=== PATIENT | male | born 1995 | race Caucasian/White ===

== ENCOUNTER 2017-05-18 07:30 | Inpatient (IN) | payer MEDICAID ==
[~2017-05-18] VITALS: Ht 170.2 cm; Wt 56.0 kg
[2017-05-18 08:48] LABS: BASOPHIL % 0.4 % (0-2); PLATELET COUNT 216 x10^3mcL (130-400)
[2017-05-18 08:55] LABS: CALCIUM 8.6 mg/dL (8.5-10.1); CARBON DIOXIDE 28.8 mmol/L (21-32); CHLORIDE SERUM 102 mmol/L (98-107); CREATININE SERUM 1.1 mg/dL (0.7-1.3); GFR1 > 60 mL/min; GLUCOSE SERUM 90 mg/dL (74-106); SODIUM SERUM 141 mmol/L (136-145)
[2017-05-18 08:55] LABS: UA SPECIFIC GRAVITY >=1.030 (1.005-1.035); microscopic required? YES; urine erythrocyte TRACE (NEGATIVE)
[2017-05-18 08:59] LABS: ALKALINE PHOSPHATASE 80 U/L (46-116); ALT/SGPT 14 U/L (16-63); AST/SGOT 15 U/L (15-37); BILIRUBIN TOTAL 0.62 mg/dL (0.20-1.00)
[2017-05-18 09:11] LABS: AMPHETAMINE QUAL UR NONE DETECTED (NEG <=1000)
[2017-05-18] MEDS ORDERED: HALOPERIDOL10 MG PO (10:56)
[2017-05-18] MEDS ORDERED: OLANZAPINE5 M2 PO (10:57)
[2017-05-18 11:40] VITALS: BP 119/72
[2017-05-18 11:44] LABS: MAGNESIUM 2.1 mg/dL (1.8-2.4); PHOSPHOROUS 4.3 mg/dL (2.5-4.9)
[2017-05-18 11:45] LABS: FREE T4 1.15 ng/dL (0.76-1.46); FREE THYROXINE INDEX 2.9 ug/dL (1.4-4.5); T3 TOTAL 1.1 ng/mL; T4(THYROXINE) 7.9 ug/dL (4.7-13.3)
[2017-05-18 11:46] VITALS: Ht 170.2 cm; Wt 56.0 kg
[2017-05-18 11:47] LABS: CHOLESTEROL/HDL RATIO 5.4
[2017-05-18 13:16] VITALS: BP 109/71
[2017-05-18 17:15] VITALS: BP 92/59
[2017-05-18 21:03] VITALS: BP 91/58
[2017-05-19 05:31] VITALS: BP 112/63
[2017-05-19 08:55] VITALS: BP 110/67
[2017-05-19 12:55] VITALS: BP 109/65
[2017-05-19 18:05] VITALS: BP 101/53
[2017-05-19 20:59] VITALS: BP 101/53
[2017-05-20 05:34] VITALS: BP 106/69
[2017-05-20 06:46] LABS: BASOPHIL % 0.5 % (0-2); PLATELET COUNT 175 x10^3mcL (130-400); RED CELL DISTRIBUTION WIDTH 13.6 % (11.5-14.5)
[2017-05-20 07:00] LABS: CARBON DIOXIDE 24.6 mmol/L (21-32); CHLORIDE SERUM 105 mmol/L (98-107); CREATININE SERUM 0.9 mg/dL (0.7-1.3); GFR1 > 60 mL/min; GLUCOSE SERUM 75 mg/dL (74-106); MAGNESIUM 1.8 mg/dL (1.8-2.4); PHOSPHOROUS 3.2 mg/dL (2.5-4.9); POTASSIUM SERUM 3.5 mmol/L (3.5-5.1); SODIUM SERUM 139 mmol/L (136-145)
[2017-05-20 08:58] VITALS: BP 105/50
[2017-05-20 17:32] VITALS: BP 109/72
[2017-05-20 20:38] VITALS: BP 95/50
[2017-05-21 05:59] VITALS: BP 103/62
[2017-05-21 06:58] LABS: BASOPHIL % 0.6 % (0-2); PLATELET COUNT 178 x10^3mcL (130-400); RED CELL DISTRIBUTION WIDTH 13.9 % (11.5-14.5)
[2017-05-21 07:24] LABS: CALCIUM 8.1 mg/dL (8.5-10.1); CARBON DIOXIDE 25.4 mmol/L (21-32); CHLORIDE SERUM 102 mmol/L (98-107); CREATININE SERUM 0.8 mg/dL (0.7-1.3); GFR1 > 60 mL/min; GLUCOSE SERUM 73 mg/dL (74-106); MAGNESIUM 1.7 mg/dL (1.8-2.4); POTASSIUM SERUM 3.5 mmol/L (3.5-5.1); SODIUM SERUM 136 mmol/L (136-145)
[2017-05-21 08:11] VITALS: BP 105/53
[2017-05-21 17:41] VITALS: BP 101/61
[2017-05-21 21:36] VITALS: BP 100/60
[2017-05-22 04:47] VITALS: BP 109/65
[2017-05-22 08:21] LABS: CALCIUM 7.8 mg/dL (8.5-10.1); CARBON DIOXIDE 26.8 mmol/L (21-32); CHLORIDE SERUM 104 mmol/L (98-107); CREATININE SERUM 0.9 mg/dL (0.7-1.3); GFR1 > 60 mL/min; GLUCOSE SERUM 72 mg/dL (74-106); POTASSIUM SERUM 3.3 mmol/L (3.5-5.1); SODIUM SERUM 138 mmol/L (136-145)
[2017-05-22 10:49] VITALS: BP 111/72
[2017-05-22 12:38] VITALS: BP 112/75
[2017-05-22 17:15] VITALS: BP 111/71
[2017-05-22 22:26] VITALS: BP 101/66
[2017-05-23 05:39] VITALS: BP 93/48
[2017-05-23 06:29] LABS: CALCIUM 8.2 mg/dL (8.5-10.1); CARBON DIOXIDE 25.8 mmol/L (21-32); CHLORIDE SERUM 105 mmol/L (98-107); CREATININE SERUM 0.9 mg/dL (0.7-1.3); GFR1 > 60 mL/min; GLUCOSE SERUM 78 mg/dL (74-106); MAGNESIUM 1.9 mg/dL (1.8-2.4); PHOSPHOROUS 3.8 mg/dL (2.5-4.9); POTASSIUM SERUM 3.6 mmol/L (3.5-5.1); SODIUM SERUM 141 mmol/L (136-145)
[2017-05-23 09:00] VITALS: BP 91/50
[2017-05-23 18:15] VITALS: BP 104/62
[2017-05-23 21:35] VITALS: BP 100/56
[2017-05-24 06:21] VITALS: BP 98/56
[2017-05-24 18:00] VITALS: BP 101/61
[2017-05-24 22:17] VITALS: BP 107/60
[2017-05-25 06:16] LABS: BASOPHIL % 0.4 % (0-2); PLATELET COUNT 171 x10^3mcL (130-400); RED CELL DISTRIBUTION WIDTH 13.9 % (11.5-14.5)
[2017-05-25 06:23] VITALS: BP 101/56
[2017-05-25 06:33] LABS: CALCIUM 8.7 mg/dL (8.5-10.1); CARBON DIOXIDE 25.3 mmol/L (21-32); CHLORIDE SERUM 102 mmol/L (98-107); CREATININE SERUM 0.8 mg/dL (0.7-1.3); GFR1 > 60 mL/min; GLUCOSE SERUM 79 mg/dL (74-106); MAGNESIUM 1.9 mg/dL (1.8-2.4); PHOSPHOROUS 3.8 mg/dL (2.5-4.9); POTASSIUM SERUM 3.5 mmol/L (3.5-5.1); SODIUM SERUM 139 mmol/L (136-145)
[2017-05-25 09:30] VITALS: BP 97/55
[2017-05-25 13:05] VITALS: BP 100/62
[2017-05-25 17:22] VITALS: BP 104/57
[2017-05-25 22:10] VITALS: BP 102/59
[2017-05-26 06:08] VITALS: BP 95/60
[2017-05-26 09:25] VITALS: BP 106/67
[2017-05-26 13:55] VITALS: BP 103/61
[2017-05-26 17:06] VITALS: BP 116/69
[2017-05-26 21:00] VITALS: BP 138/82
[2017-05-27 05:53] VITALS: BP 124/87
[2017-05-27 09:31] VITALS: BP 123/100
[2017-05-27 14:01] VITALS: BP 122/68
[2017-05-27 16:12] VITALS: BP 119/70
[2017-05-27 21:16] VITALS: BP 106/69
[2017-05-28 05:50] VITALS: BP 98/58
[2017-05-28 07:08] LABS: CALCIUM 8.9 mg/dL (8.5-10.1); CARBON DIOXIDE 28.5 mmol/L (21-32); CHLORIDE SERUM 101 mmol/L (98-107); CREATININE SERUM 0.9 mg/dL (0.7-1.3); GFR1 > 60 mL/min; GLUCOSE SERUM 82 mg/dL (74-106); MAGNESIUM 2.1 mg/dL (1.8-2.4); PHOSPHOROUS 4.4 mg/dL (2.5-4.9); POTASSIUM SERUM 3.6 mmol/L (3.5-5.1); SODIUM SERUM 137 mmol/L (136-145)
[2017-05-28 07:51] LABS: BASOPHIL % 0.5 % (0-2); PLATELET COUNT 206 x10^3mcL (130-400); RED CELL DISTRIBUTION WIDTH 14.1 % (11.5-14.5)
[2017-05-28 09:44] VITALS: BP 118/61
[2017-05-28 13:23] VITALS: BP 110/63
[2017-05-28 18:07] VITALS: BP 107/67
[2017-05-28 22:01] VITALS: BP 98/63
[2017-05-29 09:30] VITALS: BP 105/59
[2017-05-29 17:44] VITALS: BP 104/62
[2017-05-29 21:55] VITALS: BP 101/62
[2017-05-30 06:06] VITALS: BP 86/53
[2017-05-30 08:00] VITALS: BP 156/67
[2017-05-30 08:13] VITALS: BP 98/50
[2017-05-30 17:18] VITALS: BP 119/75
[2017-05-30 21:17] VITALS: BP 113/59
[2017-05-31 05:50] VITALS: BP 106/58
[2017-05-31 09:29] VITALS: BP 101/53
[2017-05-31 13:43] VITALS: BP 96/53
[2017-05-31 16:46] VITALS: BP 116/65
[2017-05-31 22:28] VITALS: BP 131/84
[2017-06-01 06:12] LABS: BASOPHIL % 0.5 % (0-2); PLATELET COUNT 219 x10^3mcL (130-400)
[2017-06-01 06:23] VITALS: BP 97/60
[2017-06-01 06:36] LABS: CALCIUM 8.2 mg/dL (8.5-10.1); CARBON DIOXIDE 28.9 mmol/L (21-32); CHLORIDE SERUM 101 mmol/L (98-107); CREATININE SERUM 0.9 mg/dL (0.7-1.3); GFR1 > 60 mL/min; GLUCOSE SERUM 83 mg/dL (74-106); MAGNESIUM 2.2 mg/dL (1.8-2.4); POTASSIUM SERUM 3.6 mmol/L (3.5-5.1); SODIUM SERUM 139 mmol/L (136-145)
[2017-06-01 08:56] VITALS: BP 121/73
[2017-06-01 17:58] VITALS: BP 121/74
[2017-06-01 20:57] VITALS: BP 124/70
[2017-06-02 06:05] VITALS: BP 90/49
[2017-06-02 09:51] VITALS: BP 98/54
[2017-06-02 16:38] VITALS: BP 93/48
[2017-06-02 22:00] VITALS: BP 98/60
[2017-06-03 06:19] VITALS: BP 120/70
[2017-06-03 07:55] VITALS: BP 101/68
[2017-06-03 21:00] VITALS: BP 120/83
[2017-06-04 06:26] VITALS: BP 116/68
[2017-06-04 08:21] LABS: BASOPHIL % 0.5 % (0-2); PLATELET COUNT 231 x10^3mcL (130-400); RED CELL DISTRIBUTION WIDTH 14.1 % (11.5-14.5)
[2017-06-04 08:36] LABS: CALCIUM 8.4 mg/dL (8.5-10.1); CARBON DIOXIDE 29.9 mmol/L (21-32); CHLORIDE SERUM 104 mmol/L (98-107); CREATININE SERUM 0.8 mg/dL (0.7-1.3); GFR1 > 60 mL/min; GLUCOSE SERUM 86 mg/dL (74-106); PHOSPHOROUS 4.9 mg/dL (2.5-4.9); POTASSIUM SERUM 3.6 mmol/L (3.5-5.1); SODIUM SERUM 138 mmol/L (136-145)
[2017-06-04 10:45] VITALS: BP 110/58
[2017-06-04 16:57] VITALS: BP 119/82
[2017-06-04 21:19] VITALS: BP 127/73
[2017-06-05 05:59] VITALS: BP 107/60
[2017-06-05 09:39] VITALS: BP 112/73
[2017-06-05 17:34] VITALS: BP 109/76
[2017-06-05 21:13] VITALS: BP 130/75
[2017-06-06 05:44] VITALS: BP 99/64
[2017-06-06 09:28] VITALS: BP 103/61
[2017-06-06 12:46] VITALS: BP 108/68
[2017-06-06 17:56] VITALS: BP 108/69
[2017-06-06 22:19] VITALS: BP 113/70
[2017-06-07 06:43] VITALS: BP 96/60
[2017-06-07 18:15] VITALS: BP 107/65
[2017-06-07 20:57] VITALS: BP 110/65
[2017-06-08 05:31] VITALS: BP 100/57
[2017-06-08] MEDS ORDERED: OLANZAPINE10 M3 IM (07:27)
[2017-06-08 08:30] VITALS: BP 97/53
[2017-06-08 13:59] VITALS: BP 97/53
[2017-06-08] MEDS ORDERED: SYRINGE1 EA10 MC (16:22)
[2017-06-08] MEDS ORDERED: NEEDLE1 EA10 MC (16:22)
[2017-06-08] MEDS ORDERED: [UNRECOGNIZED DRUG - CODE] IM (16:41)
[2017-06-08 16:42] VITALS: BP 121/78
== END 2017-06-08 18:55 | disposition home or self-care (01) | DRG 469 ==
LOC: ED 07:30 → MU 10:13 → DU 10:13 → MU 05-20 09:46 → DU 05-24 10:33 → MU 05-26 14:01 → DU 05-30 18:44 → MU 05-31 09:01
PROVIDERS: Emergency Medicine; Family Medicine; Family Medicine Sports Medicine; Student in an Organized Health Care Education/Training Program
DX: N17.0 Acute kidney failure with tubular necrosis (principal); G93.41 Metabolic encephalopathy; F15.20 Other stimulant dependence, uncomplicated; E83.39 Other disorders of phosphorus metabolism; E87.6 Hypokalemia; F20.9 Schizophrenia, unspecified; T43.4X6A Underdosing of butyrophenone and thiothixene neuroleptics, initial encounter; T43.596A Underdosing of other antipsychotics and neuroleptics, initial encounter; Z91.128 Patient's intentional underdosing of medication regimen for other reason; Z79.899 Other long term (current) drug therapy; Y92.009 Unspecified place in unspecified non-institutional (private) residence as the place of occurrence of the external cause; Z91.19 Patient's noncompliance with other medical treatment and regimen; E83.51 Hypocalcemia
CPT/HCPCS: 82962; 83880; 84439; 97110-GP; 97116-GP; 97530-GP; G0480; J1200; J1630; J2060; J3475; J3480; J3486; J3490; J7030; Q0092

== ENCOUNTER 2018-09-27 19:07 | Emergency (ER) | payer MEDICAID ==
[~2018-09-27] VITALS: Ht 167.6 cm; Wt 75.7 kg
[~2018-09-27 19:07] MED LIST: HALOPERIDOL10 MG PO; NEEDLE1 EA10 MC; OLANZAPINE10 M3 IM; OLANZAPINE5 M2 PO; SYRINGE1 EA10 MC; [UNRECOGNIZED DRUG - CODE] IM
[2018-09-27 19:24] VITALS: Ht 167.6 cm; Wt 75.7 kg
[2018-09-27 20:21] LABS: BASOPHIL % 0.4 % (0-2); PLATELET COUNT 213 x10^3mcL (130-400); RED CELL DISTRIBUTION WIDTH 13.5 % (11.5-14.5)
[2018-09-27 20:41] LABS: CALCIUM 8.5 mg/dL (8.5-10.1); CARBON DIOXIDE 25.7 mmol/L (21-32); CHLORIDE SERUM 99 mmol/L (98-107); CREATININE SERUM 1.1 mg/dL (0.7-1.3); GFR1 > 60 mL/min; GLUCOSE SERUM 103 mg/dL (74-106); POTASSIUM SERUM 3.1 mmol/L (3.5-5.1); SODIUM SERUM 135 mmol/L (136-145)
[2018-09-27 20:45] LABS: ALBUMIN 3.6 g/dL (3.4-5.0); ALKALINE PHOSPHATASE 79 U/L (46-116); ALT/SGPT 19 U/L (16-63); AST/SGOT 23 U/L (15-37); BILIRUBIN TOTAL 0.57 mg/dL (0.20-1.00); LIPASE 58 IU/L (73-393); TOTAL PROTEIN, SERUM 7.3 g/dL (6.4-8.2)
[2018-09-27 22:50] LABS: UA SPECIFIC GRAVITY <=1.005 (1.005-1.035); microscopic required? YES; urine erythrocyte 2+ (NEGATIVE)
[2018-09-27 23:45] VITALS: BP 107/64
== END 2018-09-27 23:45 | disposition home or self-care (01) ==
LOC: ED 19:07
PROVIDERS: Emergency Medicine
DX: N13.2 Hydronephrosis with renal and ureteral calculous obstruction (principal); E87.6 Hypokalemia; R07.89 Other chest pain
CPT/HCPCS: 36415; 87491; 87591; J1885

== ENCOUNTER 2019-06-21 17:50 | Emergency (ER) | payer MEDICAID ==
[~2019-06-21] VITALS: Ht 172.7 cm; Wt 66.7 kg
[2019-06-21 17:56] VITALS: Ht 172.7 cm; Wt 66.7 kg
[2019-06-21 18:44] LABS: BASOPHIL % 0.3 % (0-2); PLATELET COUNT 189 x10^3mcL (130-400); RED CELL DISTRIBUTION WIDTH 13.4 % (11.5-14.5)
[2019-06-21 19:04] LABS: CALCIUM 8.7 mg/dL (8.5-10.1); CARBON DIOXIDE 29.1 mmol/L (21-32); CHLORIDE SERUM 100 mmol/L (98-107); CREATININE SERUM 0.9 mg/dL (0.7-1.3); GFR1 > 60 mL/min; GLUCOSE SERUM 89 mg/dL (74-106); POTASSIUM SERUM 3.6 mmol/L (3.5-5.1); SODIUM SERUM 139 mmol/L (136-145)
[2019-06-21 19:19] LABS: ALBUMIN 3.8 g/dL (3.4-5.0); ALKALINE PHOSPHATASE 57 U/L (46-116); ALT/SGPT 18 U/L (16-63); AST/SGOT 16 U/L (15-37); BILIRUBIN TOTAL 0.5 mg/dL (0.20-1.00); CHOLESTEROL 163 mg/dL (<200); HDL CHOLESTEROL 41 mg/dL (40-60); LIPASE 77 IU/L (73-393); MAGNESIUM 1.6 mg/dL (1.8-2.4); T4(THYROXINE) 7.1 ug/dL (4.7-13.3); TOTAL PROTEIN, SERUM 6.9 g/dL (6.4-8.2)
[2019-06-21 20:29] LABS: microscopic required? YES; urine erythrocyte 3+ (NEGATIVE)
[2019-06-21 20:41] LABS: AMPHETAMINE QUAL UR NONE DETECTED (See below)
[2019-06-21 22:55] VITALS: BP 123/71
== END 2019-06-21 22:55 | disposition home or self-care (01) ==
LOC: ED 17:50
PROVIDERS: Emergency Medicine
DX: R53.1 Weakness (principal); R64 Cachexia; F19.90 Other psychoactive substance use, unspecified, uncomplicated
CPT/HCPCS: 82962; 83880; G0480; J3411; J3475; J3490